=== PATIENT | male | born 1980 | race African-American/Black ===

== ENCOUNTER 2016-09-22 01:30 | Emergency (ER) | payer MEDICAID ==
[2016-09-22 01:46] VITALS: TEMP 98.6; BMI 35.1
[2016-09-22] MEDS ORDERED: IBUPROFEN 600 MG TAB PO ONE (02:10)
[2016-09-22] MEDS ORDERED: OXYCODONE HCL 5 MG TABLET PO ONE (02:10)
--- NOTE | 2016-09-22 02:46 | EDPRACDOC ---
- General Information Chief Complaint: Headache Stated Complaint: HEAD ACHE Time Seen by Provider: 09/22/16 01:48 Information Source: Patient Mode Of Arrival: Car Home Medications: Home Medications Tramadol HCl [Ultram] 50 mg PO Q4-6H #30 tablet 11/30/14 Hydrocodone Bit/Acetaminophen [Hydrocodon-Acetaminophen 5-325] 1 - 2 tab PO Q6H PRN #7 tab 09/01/16 Ondansetron HCl [Zofran] 4 mg PO TID PRN #14 tablet 09/01/16 Azithromycin [Zithromax] 250 mg PO DAILY #6 tablet 09/22/16 Hydrocodone Bit/Acetaminophen [Prentiss 5-325 Tablet] 1 each PO Q4H #10 tab Ibuprofen 600 mg PO TID #20 tablet 09/22/16 Allergies/Adverse Reactions: Allergies Allergy/AdvReac Type Severity Reaction Status Date / Time No Known Allergies Allergy Verified 08/31/16 23:39 - History of Present Illness Onset: 2 days HPI: PT PRESENTS TODAY WITH 3 DAYS OF GLOBAL JIMENEZ, BLURRED VISION AND NOSE BLEED X 2. PT STATES HE HAS NOT TRIED OTC MEDS AND HAS BEEN NON-COMPLIANT WITH HTN MEDICATIONS "BECAUSE HE FORGOT". DENIES CP, SHOB, ABD PAIN, N/V/D. Location: Reports: Generalized Pain Quality: Reports: Moderate, Throbbing Relevant History of: Reports: Hypertension Associated Signs and Symptoms: Reports: Occasional Headache, Vision Changes, Other (EPISTAXIS) ED Past Medical History - History Reviewed Yes Nurses notes reviewed and agree except as marked - Patient Medical History Cardiac History: Reports: Hypertension GI/ History: Reports: Kidney Stones (CURRENT) Psychological History: Denies: Depression Systemic History: Denies: Cancer Surgical History: Reports: Tonsillectomy/Adnoidectomy - Family Medical History Reports: Hypertension (MOM,DAD). Denies: Diabetes, Cancer, Stroke, Cardiac Disorders - Social Medical History Smoking Status: Never smoker EDM Review of Systems - Review of Systems ROS Negative Except as Marked: Yes All systems reviewed and were negative except as marked Constitutional: No Symptoms Reported Eyes: Blurred Vision Ears: No Symptoms Reported Throat: No Symptoms Reported Nose: Bleeding Respiratory: No Symptoms Reported Cardiovascular: No Symptoms Reported Gastrointestinal: No Symptoms Reported Neurological: Headache Musculoskeletal: No Symptoms Reported Integumentary: No Symptoms Reported - Physical Exam Constitutional: Alert (Awake), No apparent distress Oriented to: Time, Person, Place Last recorded Vital Signs: Last Vital Signs Temp 98.6 F 09/22/16 01:43 Pulse 85 09/22/16 01:43 Resp 20 09/22/16 02:15 BP 166/105 H 09/22/16 02:15 Pulse Ox 97 09/22/16 02:15 Oxygen Pulse Oxygen Saturation 97 O2 Device Room Air Oxygen Flow Rate Fraction of Inspired Oxygen ( FIO2) - HEENT Head: Normal Eye Exam: Normal Oropharynx: Normal Tympanic Membrane: Normal ENT EAC: Normal Nose: No Symptoms Reported Neck: Normal, Denies Pain, Midline - Respiratory/Cardiovascular Respiratory: Normal - CTA Cardiovascular: Normal - GI Palpation: Normal Tenderness: Non tender - Musculoskeletal Back: Normal Extremities: Normal - Integumentary Skin: Normal Lymphatics: Normal - Neurologic Cerebellar: Normal Mood Description: Normal Thought: Coherent Perception: Normal - Re-evaluation Re-evaluation 1 Re-evaluation Time: 02:49 Re-evaluation: BP NORMALIZED. PT SLEEPING, BUT WHEN AWAKENED STATES NO IMPROVEMENT IN JIMENEZ. Decision Time to Discharge: 02:49 - Departure Disposition: Home Condition: Good Final Diagnosis: Hypertension Qualifiers: Hypertension type: essential hypertension Qualified Code(s): I10 - Essential ( primary) hypertension Headache Qualifiers: Headache type: unspecified Headache chronicity pattern: acute headache Intractability: not intractable Qualified Code(s): R51 - Headache Sinusitis Qualifiers: Sinusitis location: unspecified location Chronicity: acute Recurrence: non- recurrent Qualified Code(s): J01.90 - Acute sinusitis, unspecified Instructions: Chronic Hypertension (ED), Headache, Headache,FAQ's Education/Counseling Given To: Patient Education/Counseling Given Regarding: Diagnosis, Treatment, Follow Up Referrals: None,No Provider [Primary Care Provider] - One Week Prescriptions: Azithromycin [Zithromax] 250 mg PO DAILY #6 tablet Hydrocodone Bit/Acetaminophen [Prentiss 5-325 Tablet] 1 each PO Q4H #10 tab Ibuprofen 600 mg PO TID #20 tablet Additional Instructions: PLEASE RESUME YOUR BLOOD PRESSURE MEDICATION IN THE MORNING AND CALL PCP REGARDING MANAGEMENT OF HIGH BLOOD PRESSURE.
[2016-09-22 03:02] VITALS: BP 128/79; PULSE 80
== END 2016-09-22 03:03 | disposition home or self-care (01) ==
LOC: ED 01:30
DX: R51 Headache (principal); I10 Essential (primary) hypertension; J01.90 Acute sinusitis, unspecified
CPT/HCPCS: 99283; J3490